=== PATIENT | female | born 1945 | race Caucasian/White ===

== ENCOUNTER 2023-11-27 18:03 | Inpatient (IN) | payer MEDICARE ==
[~2023-11-27] VITALS: Ht 162.6 cm; Wt 96.0 kg
[2023-11-27] MEDS ORDERED: heparin 25,000 UNIT/250ml bag 250 ML IV PRN (18:25)
[2023-11-27] MEDS: COMMUNICATION ORDER 1 EA MISC MC ONE (18:33)
[2023-11-27] MEDS: heparin 25,000 UNIT/250ml bag 250 ML IV PRN (18:36)
[2023-11-27] MEDS ORDERED: ASPI-611 PO (18:40)
[2023-11-27] MEDS ORDERED: MULT-1085 PO (18:40)
[2023-11-27] MEDS: MESSAGE TO NURSING IV ONE (18:42)
[2023-11-27 18:43] LABS: BASOPHILS % (AUTO) 0.3 % (0-1); EOSINOPHILS % (AUTO) 0 % (0-6); HEMATOCRIT 41.2 % (35.0-45.0); HEMOGLOBIN 13.9 g/dl (12.0-16.0); LYMPHOCYTES % (AUTO) 12.3 % (21-51); MEAN CORPUSCULAR HEMOGLOBIN 31.9 PG (27.0-31.0); MEAN CORPUSCULAR HGB CONC 33.9 g/dL (33.0-36.5); MEAN CORPUSCULAR VOLUME 94.3 FL (78-98); MEAN PLATELET VOLUME 9.2 FL (7.4-10.4); MONOCYTES # (AUTO) 0.8 X10'3 (0-0.9); MONOCYTES % (AUTO) 9.5 % (2-12); NEUTROPHILS # (AUTO) 6.5 X10'3 (1.8-7.7); NEUTROPHILS % (AUTO) 77.9 % (42-75); PLATELET COUNT 213 X10'3 (140-440); RED BLOOD COUNT 4.36 X10'6 (4.20-5.60); RED CELL DISTRIBUTION WIDTH 14.4 % (11.5-14.5); WHITE BLOOD COUNT 8.3 X10'3 (4.5-11.0)
[2023-11-27 18:53] LABS: ALANINE AMINOTRANSFERASE 31 U/L (12-78); ALBUMIN 3.8 G/DL (3.4-5.0); ALKALINE PHOSPHATASE 53 IU/L (46-116); ANION GAP 11 (8-16); ASPARTATE AMINO TRANSFERASE 23 U/L (10-37); BILIRUBIN,TOTAL 0.6 MG/DL (0.1-1.0); BLOOD UREA NITROGEN 18 MG/DL (7-18); BUN/CREATININE RATIO 20.9 (10.0-20.0); CALCIUM 9.1 MG/DL (8.5-10.1); CHLORIDE 101 MMOL/L (99-107); CREATININE 0.86 MG/DL (0.40-0.90); GLUCOSE 112 MG/DL (70-104); POTASSIUM 4.3 MMOL/L (3.5-5.1); SODIUM 139 MMOL/L (135-145); TOTAL CARBON DIOXIDE 26.7 MMOL/L (24-32); TOTAL PROTEIN 7.7 G/DL (6.4-8.2); eCRCL 48 ML/MIN; eGFR 64 ML/MIN
[2023-11-27 19:00] LABS: PRO BRAIN NATRIURETIC PEPTIDE 12265 PG/ML (0-450)
[2023-11-27 19:37] LABS: INR 1.1 INR; PROTHROMBIN TIME 11.3 SECONDS (9.0-12.0)
[2023-11-27] MEDS ORDERED: magnesium sulf-water 2g/50mL 50 ML IV PRN (20:10)
[2023-11-27] MEDS ORDERED: magnesium Cl slow-release 64mg tablet PO PRN (20:10)
[2023-11-27] MEDS ORDERED: ondansetron/PF 4mg/2ml inj IV PRN (20:10)
[2023-11-27] MEDS ORDERED: acetaminophen 325mg tablet PO PRN (20:10)
[2023-11-27] MEDS ORDERED: potassium Cl 40MEQ/1/2NS 520ml 520 ML IV PRN (20:10)
[2023-11-27] MEDS ORDERED: magnesium sulf-water 4G/100mL 100 ML IV PRN (20:10)
[2023-11-27] MEDS ORDERED: magnesium hydroxide 30ml (MOM) UD suspension PO PRN (20:10)
[2023-11-27] MEDS ORDERED: potassium Cl 20 mEq SR tablet PO PRN (20:10)
[2023-11-27] MEDS ORDERED: mag hydrox/Alum hydrox/simeth 30ml oral suspension PO PRN (20:10)
[2023-11-27] MEDS: PERFLUTREN PROTEIN-A MICROSPHR (Optison) 0.22 MG/ML 3ML VIAL IV ONE (20:24)
[2023-11-27] MEDS: normal saline 1000ml 1,000 ML IV SCH (21:09)
[2023-11-27] MEDS: hydrALAZINE 20mg/ml inj. IV ONE (23:44)
[2023-11-27] MEDS: gabapentin 300mg capsule PO SCH (23:47)
[2023-11-28] VITALS (7 sets, daily range): BP systolic 118–179; BP diastolic 56–88; PULSE 55–90; RESP 13–20; TEMP 97.3–98.9; O2SAT 94–98
[2023-11-28] MEDS ORDERED: gabapentin 400mg capsule PO SCH
[2023-11-28 01:16] LABS: BASOPHILS % (AUTO) 0.2 % (0-1); EOSINOPHILS % (AUTO) 0.2 % (0-6); HEMATOCRIT 39.4 % (35.0-45.0); HEMOGLOBIN 13.3 g/dl (12.0-16.0); LYMPHOCYTES # (AUTO) 0.8 X10'3 (1.1-4.8); LYMPHOCYTES % (AUTO) 12.1 % (21-51); MEAN CORPUSCULAR HEMOGLOBIN 31.7 PG (27.0-31.0); MEAN CORPUSCULAR HGB CONC 33.7 g/dL (33.0-36.5); MEAN CORPUSCULAR VOLUME 94.2 FL (78-98); MEAN PLATELET VOLUME 8.8 FL (7.4-10.4); MONOCYTES # (AUTO) 0.6 X10'3 (0-0.9); MONOCYTES % (AUTO) 8.1 % (2-12); NEUTROPHILS # (AUTO) 5.4 X10'3 (1.8-7.7); NEUTROPHILS % (AUTO) 79.4 % (42-75); PLATELET COUNT 197 X10'3 (140-440); RED BLOOD COUNT 4.19 X10'6 (4.20-5.60); WHITE BLOOD COUNT 6.8 X10'3 (4.5-11.0)
[2023-11-28 01:30] LABS: ALANINE AMINOTRANSFERASE 26 U/L (12-78); ALBUMIN 3.5 G/DL (3.4-5.0); ALKALINE PHOSPHATASE 46 IU/L (46-116); ANION GAP 12 (8-16); ASPARTATE AMINO TRANSFERASE 21 U/L (10-37); BILIRUBIN,TOTAL 0.6 MG/DL (0.1-1.0); BLOOD UREA NITROGEN 17 MG/DL (7-18); BUN/CREATININE RATIO 20.5 (10.0-20.0); CALCIUM 8.1 MG/DL (8.5-10.1); CHLORIDE 105 MMOL/L (99-107); CHOL/HDL RATIO 2.4 (0.00-4.99); CHOLESTEROL 220 MG/DL (0-200); CREATININE 0.83 MG/DL (0.40-0.90); GLUCOSE 118 MG/DL (70-104); HDL CHOLESTEROL 90 MG/DL (35-60); LDL CHOLESTEROL 105 MG/DL (50-100); MAGNESIUM 1.8 MG/DL (1.5-2.4); POTASSIUM 3.6 MMOL/L (3.5-5.1); SODIUM 140 MMOL/L (135-145); TOTAL CARBON DIOXIDE 22.9 MMOL/L (24-32); TOTAL PROTEIN 6.9 G/DL (6.4-8.2); TRIGLYCERIDES 50 MG/DL (20-135); eCRCL 50 ML/MIN; eGFR 67 ML/MIN
[2023-11-28] MEDS: heparin 10,000 units/1 ML INJ IV PRN (01:56)
[2023-11-28] MEDS: MESSAGE TO NURSING IV ONE ×3 (03:06→17:33)
[2023-11-28] MEDS: K and/or MAG REPLACEMENT MC SCH (08:00)
[2023-11-28] MEDS: docusate sod 100mg capsule PO SCH (08:33)
[2023-11-28] MEDS ORDERED: MAGN250C (14:50)
[2023-11-28] MEDS ORDERED: hydrALAZINE 20mg/ml inj. IV PRN (17:00)
[2023-11-28] MEDS: losartan 50mg tablet PO SCH (17:17)
[2023-11-28] MEDS: metoprolol succinate 25mg (24-HOUR) SR. Tablet PO SCH (18:06)
[2023-11-28] MEDS: hydrALAZINE 20mg/ml inj. IV PRN (18:09)
[2023-11-28] MEDS: aspirin 81mg, enteric-coated 1 TAB TABLET.DR PO SCH (19:44)
[2023-11-29] VITALS (17 sets, daily range): BP systolic 117–192; BP diastolic 60–96; PULSE 56–68; RESP 12–19; TEMP 97.5–98.6; O2SAT 93–98
[2023-11-29 00:32] LABS: BASOPHILS % (AUTO) 0.2 % (0-1); EOSINOPHILS % (AUTO) 0.4 % (0-6); HEMATOCRIT 40.1 % (35.0-45.0); HEMOGLOBIN 13.3 g/dl (12.0-16.0); LYMPHOCYTES # (AUTO) 0.9 X10'3 (1.1-4.8); LYMPHOCYTES % (AUTO) 15.1 % (21-51); MEAN CORPUSCULAR HEMOGLOBIN 31.4 PG (27.0-31.0); MEAN CORPUSCULAR HGB CONC 33.2 g/dL (33.0-36.5); MEAN CORPUSCULAR VOLUME 94.6 FL (78-98); MEAN PLATELET VOLUME 9.5 FL (7.4-10.4); MONOCYTES # (AUTO) 0.6 X10'3 (0-0.9); MONOCYTES % (AUTO) 9.2 % (2-12); NEUTROPHILS # (AUTO) 4.6 X10'3 (1.8-7.7); NEUTROPHILS % (AUTO) 75.1 % (42-75); PLATELET COUNT 186 X10'3 (140-440); RED BLOOD COUNT 4.24 X10'6 (4.20-5.60); RED CELL DISTRIBUTION WIDTH 14.2 % (11.5-14.5); WHITE BLOOD COUNT 6.1 X10'3 (4.5-11.0)
[2023-11-29 00:48] LABS: ALANINE AMINOTRANSFERASE 27 U/L (12-78); ALBUMIN 3.3 G/DL (3.4-5.0); ALBUMIN/GLOBULIN RATIO 0.9 (1.1-1.5); ALKALINE PHOSPHATASE 46 IU/L (46-116); ANION GAP 10 (8-16); ASPARTATE AMINO TRANSFERASE 26 U/L (10-37); BILIRUBIN,TOTAL 0.6 MG/DL (0.1-1.0); BLOOD UREA NITROGEN 19 MG/DL (7-18); BUN/CREATININE RATIO 27.9 (10.0-20.0); CALCIUM 8.7 MG/DL (8.5-10.1); CHLORIDE 104 MMOL/L (99-107); CREATININE 0.68 MG/DL (0.40-0.90); GLUCOSE 100 MG/DL (70-104); MAGNESIUM 1.9 MG/DL (1.5-2.4); SODIUM 139 MMOL/L (135-145); THYROID STIMULATING HORMONE 3.92 ulU/ml (0.34-4.50); TOTAL CARBON DIOXIDE 24.7 MMOL/L (24-32); TOTAL PROTEIN 6.9 G/DL (6.4-8.2); eCRCL 61 ML/MIN; eGFR 84 ML/MIN
[2023-11-29 00:59] LABS: POTASSIUM 3.9 MMOL/L (3.5-5.1)
[2023-11-29] MEDS: MESSAGE TO NURSING IV ONE ×2 (01:02→09:01)
[2023-11-29] MEDS: pantoprazole 40mg Tablet.DR PO SCH (08:53)
[2023-11-29] MEDS ORDERED: iohexol 350 MG/ML 50ML vial IV ONE ×2 (09:29→10:26)
[2023-11-29] MEDS ORDERED: midazolam 1 mg/ML 2ml injection ONE (09:29)
[2023-11-29] MEDS ORDERED: LIDOcaine 1% 30ml preserv. free vial ONE (09:29)
[2023-11-29] MEDS ORDERED: fentaNYL/PF 50MCG/1 ML 2ML syringe ONE (09:29)
[2023-11-29] MEDS ORDERED: iohexol 350MG/ML 100ml bottle IV ONE (09:29)
[2023-11-29] MEDS ORDERED: diphenhydrAMINE 50 mg/ml inj ONE (10:06)
[2023-11-29] MEDS ORDERED: enalaprilat dihydrate 2.5mg/2ml vial IV ONE ×2 (10:15→10:29)
[2023-11-29] MEDS: HYDROchlorothiazide 25mg tablet PO SCH (12:30)
[2023-11-29] MEDS: losartan 50mg tablet PO SCH (19:57)
[2023-11-29] MEDS ORDERED: HYDROcodone/acetaminophen 5mg/325mg tablet PO PRN (22:20)
[2023-11-29] MEDS ORDERED: HYDROcodone/acetaminophen 10/325mg tab PO PRN (22:20)
[2023-11-29] MEDS ORDERED: proCHLORperazine 10 MG/2 ml inj IV PRN (22:20)
[2023-11-29] MEDS ORDERED: OXAZEpam 15mg capsule PO PRN (22:20)
[2023-11-29] MEDS ORDERED: nitroGLYCERIN 0.4mg SUBLingual tab SL PRN (22:20)
[2023-11-30 02:00] VITALS: BP 164/84; PULSE 62; RESP 15; TEMP 98; O2SAT 96
[2023-11-30 07:18] VITALS: BP 159/73; PULSE 74; RESP 16; TEMP 97.8; O2SAT 97
[2023-11-30 08:00] VITALS: RESP 16; O2SAT 97
[2023-11-30] MEDS: amLODIPine 5mg tablet PO SCH (08:10)
[2023-11-30 08:16] LABS: BASOPHILS % (AUTO) 0.3 % (0-1); EOSINOPHILS # (AUTO) 0.1 X10'3 (0-0.9); EOSINOPHILS % (AUTO) 1.3 % (0-6); HEMATOCRIT 39.7 % (35.0-45.0); HEMOGLOBIN 13.3 g/dl (12.0-16.0); LYMPHOCYTES # (AUTO) 1.2 X10'3 (1.1-4.8); LYMPHOCYTES % (AUTO) 21.9 % (21-51); MEAN CORPUSCULAR HGB CONC 33.4 g/dL (33.0-36.5); MEAN CORPUSCULAR VOLUME 95.5 FL (78-98); MEAN PLATELET VOLUME 8.9 FL (7.4-10.4); MONOCYTES # (AUTO) 0.5 X10'3 (0-0.9); MONOCYTES % (AUTO) 8.8 % (2-12); NEUTROPHILS # (AUTO) 3.7 X10'3 (1.8-7.7); NEUTROPHILS % (AUTO) 67.7 % (42-75); PLATELET COUNT 200 X10'3 (140-440); RED BLOOD COUNT 4.16 X10'6 (4.20-5.60); RED CELL DISTRIBUTION WIDTH 14.2 % (11.5-14.5); WHITE BLOOD COUNT 5.5 X10'3 (4.5-11.0)
[2023-11-30 08:26] LABS: GLUCOSE 100 MG/DL (70-104); POTASSIUM 3.1 MMOL/L (3.5-5.1); SODIUM 143 MMOL/L (135-145)
[2023-11-30 08:27] LABS: ALANINE AMINOTRANSFERASE 21 U/L (12-78); ALBUMIN 3.3 G/DL (3.4-5.0); ALKALINE PHOSPHATASE 41 IU/L (46-116); ANION GAP 10 (8-16); ASPARTATE AMINO TRANSFERASE 17 U/L (10-37); BILIRUBIN,TOTAL 0.7 MG/DL (0.1-1.0); BLOOD UREA NITROGEN 21 MG/DL (7-18); BUN/CREATININE RATIO 23.9 (10.0-20.0); CALCIUM 9.2 MG/DL (8.5-10.1); CHLORIDE 107 MMOL/L (99-107); CREATININE 0.88 MG/DL (0.40-0.90); MAGNESIUM 1.9 MG/DL (1.5-2.4); TOTAL CARBON DIOXIDE 26.5 MMOL/L (24-32); TOTAL PROTEIN 6.6 G/DL (6.4-8.2); eCRCL 47 ML/MIN; eGFR 62 ML/MIN
[2023-11-30] MEDS: potassium Cl 20 mEq SR tablet PO PRN (09:58)
[2023-11-30 11:21] VITALS: BP 140/68; PULSE 50; RESP 15; TEMP 98.3; O2SAT 98
[2023-11-30] MEDS ORDERED: METO-395 PO (12:50)
[2023-11-30] MEDS ORDERED: NOR5T PO (12:50)
[2023-11-30] MEDS ORDERED: LOSA50TA64 PO (12:50)
[2023-11-30] MEDS ORDERED: ATOR20TA66 PO (16:09)
== END 2023-11-30 14:28 | disposition home or self-care (01) | DRG 280 ==
LOC: ER 18:06 → ED HOLD 20:22 → PCU 3S 23:25
PROVIDERS: ADMIT Surgery Surgical Critical Care; ATTEND Family Medicine
PROC: 4A023N7 Measurement of Cardiac Sampling and Pressure, Left Heart, Percutaneous Approach (ICD-10-PCS; principal; 2023-11-29)
PROC: B2111ZZ Fluoroscopy of Multiple Coronary Arteries using Low Osmolar Contrast (ICD-10-PCS; 2023-11-29)
PROC: B2151ZZ Fluoroscopy of Left Heart using Low Osmolar Contrast (ICD-10-PCS; 2023-11-29)
PROC: B4101ZZ Fluoroscopy of Abdominal Aorta using Low Osmolar Contrast (ICD-10-PCS; 2023-11-29)
DX: I21.4 Non-ST elevation (NSTEMI) myocardial infarction (principal); I50.33 Acute on chronic diastolic (congestive) heart failure; I11.0 Hypertensive heart disease with heart failure; E06.3 Autoimmune thyroiditis; E78.2 Mixed hyperlipidemia; E11.9 Type 2 diabetes mellitus without complications; E66.9 Obesity, unspecified; T63.481A Toxic effect of venom of other arthropod, accidental (unintentional), initial encounter; Z68.36 Body mass index [BMI] 36.0-36.9, adult; Z85.42 Personal history of malignant neoplasm of other parts of uterus; Z88.0 Allergy status to penicillin; Z90.710 Acquired absence of both cervix and uterus; Y93.89 Activity, other specified; Y92.89 Other specified places as the place of occurrence of the external cause; Y99.8 Other external cause status
CPT/HCPCS: 36415; 71045; 80053; 80061; 83735; 83880; 84443; 84484; 85025; 85610; 85730; 87081; 93005; 93306; 93458; 93567; 99152; 99153; 99285; A6258; C1760; G0378; J0360; J1200; J1644; J2250; J3010; J3490; J7030; Q9967